=== PATIENT | female | born 1950 | race African-American/Black ===

== ENCOUNTER 2016-05-18 19:20 | Observation (INO) | payer OTHER ==
[~2016-05-18] VITALS: Ht 157.5 cm; Wt 67.6 kg
[~2016-05-18 19:20] MED LIST: ADVAIR HFA120 INHALA IH; ALBUTEROL SULF8.5 GM IH; AMLODIPINE-BEN1 EAC4 PO; ASA FREE ANALG1 EACH PO; ASPIR 8181 M1 PO; ASPIR 8181 MG PO; Aspirin E.C. PO; CHANTIX1 MG PO; CRESTOR40 MG PO; FENOFIBRATE160 M1 PO; GABAPENTIN100 MG PO; GLIMEPIRIDE2 MG PO; HUMALOG100 UNIT/2 SC; IBUPROFEN PO; IBUPROFEN800 MG PO; IMDUR30 MG PO; IMDUR60 MG PO; ISOSORBIDE DINI30 MG PO; ISOSORBIDE MONO30 MG PO; ISOSORBIDE MONO60 MG PO; Imdur PO; LANTUS 3 M100 UNITS1 SC; LEVEMIR100 UNIT/2 SC; LEVOFLOXACIN500 MG PO; LISINOPRIL10 MG PO; LO-DOSE ASPIRIN81 M1 PO; LOFIBRA,TRIGLI160 MG PO; LOVAZA1 GM PO; LOW DOSE ASPIRI81 M2 PO; METFORMIN HCL500 MG PO; METOPROLOL SUC100 MG PO; METOPROLOL SUCC50 MG PO; MOBIC15 MG PO; MOTRIN600 MG PO; MOTRIN800 MG PO; MUCINEX600 MG PO; NAPROSYN500 MG PO; NEURONTIN100 MG PO; NEURONTIN300 MG PO; NITROGLYCERIN0.4 MG SL; NITROSTAT0.4 MG SL; NORCO 5/3251 TABLET PO; NORVASC10 MG PO; NOVOLOG PE100 UNITS/ SC; Nitrostat,NitroQuick SL; Norvasc PO; PERCOCET 5/31 TABLET PO; PLAVIX75 MG PO; PREDNISONE20 MG PO; PRILOSEC PO; PRINIVIL10 MG PO; PRINIVIL20 MG PO; SLEEP AID25 M1 PO; TOPROL XL100 MG PO; TOPROL XL50 MG PO; TRAMADOL HCL50 MG PO; TRIGLIDE160 MG PO; Toprol XL PO; Tricor,Triglide PO; ULTRAM50 MG PO; Ultram PO; ZANTAC150 MG PO; ZESTRIL,PRINIV2.5 MG PO; ZESTRIL,PRINIVI10 M1 PO; ZESTRIL10 MG PO; ZETIA10 MG PO; Zestril,Prinivil PO; [UNRECOGNIZED DRUG - OTHER]; [UNRECOGNIZED DRUG - OTHER] PO
[2016-05-18 20:17] LABS: CARBON DIOXIDE (BICARBONATE) 22.4 MEQ/L (20-31)
[2016-05-18 20:24] LABS: CHLORIDE 100 mEq/L (99-109); POTASSIUM 4.7 mEq/L (3.7-5.4); SODIUM 130 mEq/L (136-147)
[2016-05-18 20:28] LABS: ANION GAP 13 MEQ/L (2-14)
[2016-05-18 20:29] LABS: TOTAL BILIRUBIN 0.3 mg/dL (0.0-1.0)
[2016-05-18 20:30] LABS: ALKALINE PHOSPHATASE 129 IU/L (3-129); GFR ESTIMATE (CALCULATED) 58 mL/min/
[2016-05-18 20:31] LABS: UREA NITROGEN (BUN) 21 mg/dL (9-23)
[2016-05-18 20:34] LABS: LIPASE 34 U/L (1.0-51.0)
[2016-05-18 20:36] LABS: GLUCOSE 587 mg/dL (70-99)
[2016-05-18 20:55] LABS: HEMATOCRIT 41.7 % (36.0-46.0); MCH 23.5 PG (29.0-34.0); MCHC 31.7 G/DL (30.0-36.0); MCV 74.2 FL (83-99); MEAN PLAT.VOLUME 10.8 uM^3 (9.5-12.4); PLATELET COUNT 362 K/uL (156-360); RBC DIS.WIDTH-CV 13.7 % (11.8-14.6); RBC DIS.WIDTH-SD 36.3 % (39-53); RED BLOOD COUNT 5.62 M/uL (3.80-5.20); WHITE BLOOD COUNT 7.4 K/uL (4.1-10.2)
[2016-05-18 23:21] LABS: PROTHROMBIN TIME 10.1 (9.2-11.2); PTT 26.8 (25-32)
[2016-05-19 00:16] LABS: POINT-OF-CARE METER ID UU14100415
[2016-05-19 00:56] LABS: POINT-OF-CARE METER ID UU14100415
[2016-05-19 01:07] LABS: CHLORIDE 110 mEq/L (99-109)
[2016-05-19 01:11] LABS: ANION GAP 13 MEQ/L (2-14)
[2016-05-19 01:13] LABS: GFR ESTIMATE (CALCULATED) > 59 mL/min/
[2016-05-19 01:14] LABS: UREA NITROGEN (BUN) 17 mg/dL (9-23)
[2016-05-19 01:15] LABS: GLUCOSE 138 mg/dL (70-99); POTASSIUM 3.6 mEq/L (3.7-5.4); SODIUM 142 mEq/L (136-147)
[2016-05-19 01:54] LABS: POINT-OF-CARE METER ID UU14100415
[2016-05-19 04:43] LABS: POINT-OF-CARE METER ID UU14100415
[2016-05-19 07:56] LABS: POINT-OF-CARE METER ID UU14100415
[2016-05-19 08:14] LABS: Estimated Average Glucose 303 mg/dL (70-123); HEMOGLOBIN A1c (GLYCOHEMOGLOB) 12.2 % HGB (Below 5.7)
[2016-05-19] MEDS ORDERED: METFORMIN HCL850 MG PO (09:25)
[2016-05-19] MEDS ORDERED: METFORMIN HCL500 MG PO (09:26)
[2016-05-19 12:15] LABS: POINT-OF-CARE METER ID UU14100415
[2016-05-19 13:46] LABS: POINT-OF-CARE METER ID UU13113778
[2016-05-19 15:21] LABS: ADD MIUA? YES; BILIRUBIN NEGATIVE; BLOOD SMALL; COLOR STRAW ((YELLOW)); GLUCOSE (STRIP) >=500; KETONES NEGATIVE; LEUKOCYTES NEGATIVE; NITRITE NEGATIVE; PROTEIN (STRIP) NEGATIVE; SPECIFIC GRAVITY 1.016 (1.000-1.030); UROBILINOGEN 0.2 MG/DL (0.2-1.0)
[2016-05-19 15:23] LABS: BACTERIA NONE SEEN /HPF; EPITHELIAL CELLS RARE /HPF; MUCUS TRACE /LPF; RED BLOOD CELLS 0-5 /HPF (0-5); UCUL ADDED? NO; WHITE BLOOD CELLS 0-5 /HPF (0-5)
[2016-05-19 17:01] LABS: POINT-OF-CARE METER ID UU13113725
[2016-05-19 17:49] VITALS: BP 168/74
[2016-05-19 21:05] LABS: POINT-OF-CARE METER ID UU13113725
[2016-05-19 23:09] VITALS: BP 120/61
[2016-05-20 05:50] LABS: POINT-OF-CARE METER ID UU13113725
[2016-05-20 06:51] VITALS: BP 124/58
[2016-05-20 06:52] LABS: EOSINOPHIL (%) 0.8 % (0-5); EOSINOPHIL COUNT 0.1 K/uL (0-0.3); HEMATOCRIT 38.7 % (36.0-46.0); IMMATURE GRANULOCYTE (%) 0.3 % (0.0-0.7); INSTRUMENT ABS NEUTROPHIL CT 3.1 K/uL; LYMPHOCYTE COUNT 2.6 K/uL (1.0-2.8); MCH 22.8 PG (29.0-34.0); MCHC 30.7 G/DL (30.0-36.0); MCV 74.1 FL (83-99); MEAN PLAT.VOLUME 11.6 uM^3 (9.5-12.4); MONOCYTE (%) 7.4 % (3-12); MONOCYTE COUNT 0.5 K/uL (0-0.8); NEUTROPHIL (%) 49.6 % (45-76); NEUTROPHIL COUNT 3.1 K/uL (1.8-6.4); PLATELET COUNT 340 K/uL (156-360); RBC DIS.WIDTH-SD 37.2 % (39-53); RED BLOOD COUNT 5.22 M/uL (3.80-5.20); WHITE BLOOD COUNT 6.3 K/uL (4.1-10.2)
[2016-05-20 07:02] LABS: ANION GAP 9 MEQ/L (2-14); CHLORIDE 109 MEQ/L (99-109); GFR ESTIMATE (CALCULATED) > 59 mL/min/; SAMPLE HEMOLYSIS CHECK 0; SAMPLE ICTERIC CHECK 0; SAMPLE LIPEMIA CHECK 0; SODIUM 141 MEQ/L (136-147); UREA NITROGEN (BUN) 11 mg/dL (9-23)
[2016-05-20 07:16] LABS: GLUCOSE 230 mg/dL (70-99); POTASSIUM 4.6 MEQ/L (3.7-5.4)
[2016-05-20 11:24] LABS: POINT-OF-CARE METER ID UU13113725
[2016-05-20 11:58] LABS: POINT-OF-CARE METER ID UU13113725
[2016-05-20 12:22] LABS: POINT-OF-CARE METER ID UU13113725
[2016-05-20] MEDS ORDERED: CLOTRIM ANTIFUN15 GM TP (12:38)
== END 2016-05-20 14:33 | disposition home or self-care (01) ==
LOC: EME 19:20 → 5EAST 05-19 02:15 → EDOF 05-19 02:15 → 5EAST 05-19 02:15
PROVIDERS: Emergency Medicine; Family Medicine; Physician Assistant
DX: E11.00 Type 2 diabetes mellitus with hyperosmolarity without nonketotic hyperglycemic-hyperosmolar coma (NKHHC) (principal); E11.65 Type 2 diabetes mellitus with hyperglycemia; E87.1 Hypo-osmolality and hyponatremia; I10 Essential (primary) hypertension; E78.5 Hyperlipidemia, unspecified; I25.10 Atherosclerotic heart disease of native coronary artery without angina pectoris; F17.200 Nicotine dependence, unspecified, uncomplicated; Z79.4 Long term (current) use of insulin; Z95.1 Presence of aortocoronary bypass graft; Z95.5 Presence of coronary angioplasty implant and graft
CPT/HCPCS: 80048; 80053; 81003; 82010; 82803; 82948; 83036; 83690; 85025; 85027; 85610; 85730; 99281; 99285; G0378; J1650; J1815; J3360; J7030

== ENCOUNTER 2016-10-20 17:13 | Emergency (ER) | payer OTHER ==
[~2016-10-20] VITALS: Ht 157.5 cm; Wt 71.5 kg
[2016-10-20] MEDS ORDERED: CHANTIX1 MG PO (17:34)
[2016-10-20 18:11] LABS: CHLORIDE 103 mEq/L (99-109); SODIUM 137 mEq/L (136-147)
[2016-10-20 18:12] LABS: HEMATOCRIT 42.2 % (36.0-46.0); MCH 23.3 PG (29.0-34.0); MCHC 31.8 G/DL (30.0-36.0); MCV 73.4 FL (83-99); MEAN PLAT.VOLUME 11.1 uM^3 (9.5-12.4); PLATELET COUNT 298 K/uL (156-360); RBC DIS.WIDTH-CV 14.6 % (11.8-14.6); RBC DIS.WIDTH-SD 38.1 % (39-53); RED BLOOD COUNT 5.75 M/uL (3.80-5.20); WHITE BLOOD COUNT 7.4 K/uL (4.1-10.2)
[2016-10-20 18:14] LABS: ANION GAP 14 MEQ/L (2-14)
[2016-10-20 18:16] LABS: GFR ESTIMATE (CALCULATED) > 59 mL/min/
[2016-10-20 18:17] LABS: UREA NITROGEN (BUN) 14 mg/dL (9-23)
[2016-10-20 18:19] LABS: CARBON DIOXIDE (BICARBONATE) 25.4 MEQ/L (20-31)
[2016-10-20 18:21] LABS: GLUCOSE 433 mg/dL (70-99)
[2016-10-20 18:26] LABS: ADD MIUA? NO; BILIRUBIN NEGATIVE; BLOOD NEGATIVE; COLOR STRAW ((YELLOW)); GLUCOSE (STRIP) >=500; KETONES NEGATIVE; LEUKOCYTES NEGATIVE; NITRITE NEGATIVE; PROTEIN (STRIP) NEGATIVE; SPECIFIC GRAVITY 1.025 (1.000-1.030); UCUL ADDED? NO; UROBILINOGEN 0.2 MG/DL (0.2-1.0)
[2016-10-20 18:59] LABS: SAMPLE HEMOLYSIS CHECK 0; SAMPLE ICTERIC CHECK 0; SAMPLE LIPEMIA CHECK 0
[2016-10-20 19:36] VITALS: BP 152/77
[2016-10-20 19:38] LABS: POINT-OF-CARE METER ID UU14100415
== END 2016-10-20 19:40 | disposition home or self-care (01) ==
LOC: EME 17:13
PROVIDERS: Emergency Medicine
DX: E11.65 Type 2 diabetes mellitus with hyperglycemia (principal); Z79.4 Long term (current) use of insulin; I11.0 Hypertensive heart disease with heart failure; I50.9 Heart failure, unspecified; I25.10 Atherosclerotic heart disease of native coronary artery without angina pectoris; I25.2 Old myocardial infarction; Z95.1 Presence of aortocoronary bypass graft; Z95.5 Presence of coronary angioplasty implant and graft; E78.5 Hyperlipidemia, unspecified; J45.909 Unspecified asthma, uncomplicated; Z87.891 Personal history of nicotine dependence; Z96.89 Presence of other specified functional implants; Z79.02 Long term (current) use of antithrombotics/antiplatelets; Z79.82 Long term (current) use of aspirin
CPT/HCPCS: 80048; 81003; 82010; 82803; 82948; 85027; 99281; 99285; J7030

== ENCOUNTER → 2016-10-20 | Outpatient (CLI) | payer MEDICARE, OTHER ==
[~2016-10-20] MED LIST changes: +CLOTRIM ANTIFUN15 GM TP; +METFORMIN HCL850 MG PO
== END | disposition home or self-care (01) ==
LOC: CDC 12:19
DX: R94.31 Abnormal electrocardiogram [ECG] [EKG] (principal); I25.2 Old myocardial infarction
CPT/HCPCS: 93000

== ENCOUNTER 2017-02-18 10:03 | Emergency (ER) | payer OTHER ==
[~2017-02-18] VITALS: Ht 157.5 cm; Wt 71.5 kg
[2017-02-18] MEDS ORDERED: VALIUM5 MG PO (13:27)
[2017-02-18] MEDS ORDERED: PERCOCET 5/31 TABLET PO (13:27)
[2017-02-18 14:01] VITALS: BP 114/75
== END 2017-02-18 14:01 | disposition home or self-care (01) ==
LOC: EME 10:03
DX: S43.402A Unspecified sprain of left shoulder joint, initial encounter (principal); X58.XXXA Exposure to other specified factors, initial encounter; G89.29 Other chronic pain; M54.9 Dorsalgia, unspecified; E11.9 Type 2 diabetes mellitus without complications; Z79.84 Long term (current) use of oral hypoglycemic drugs; Z95.1 Presence of aortocoronary bypass graft; Z95.5 Presence of coronary angioplasty implant and graft; Z91.041 Radiographic dye allergy status
CPT/HCPCS: 73030; 73060; 99281; 99283; J1885

== ENCOUNTER 2017-05-20 10:39 | Day surgery (SDC) | payer OTHER ==
[~2017-05-20] VITALS: Ht 157.5 cm; Wt 68.9 kg
[~2017-05-20 10:39] MED LIST changes: +ENDOCET 5-3251 EACH PO; +HUMULIN R500 UNIT/1 SC; +VALIUM5 MG PO
[2017-05-20 11:15] VITALS: BP 127/63
[2017-05-20 16:10] VITALS: BP 128/60
[2017-05-20 16:55] VITALS: BP 114/56
== END 2017-05-20 16:57 | disposition home or self-care (01) ==
LOC: SDC 10:39 → EDSTATUS 12:39 → 2SOUTH 12:41 → EDSTATUS 12:59 → SDC 13:00
PROVIDERS: Orthopaedic Surgery
DX: M25.812 Other specified joint disorders, left shoulder (principal); M75.42 Impingement syndrome of left shoulder; M24.012 Loose body in left shoulder; M19.012 Primary osteoarthritis, left shoulder; I10 Essential (primary) hypertension; E11.9 Type 2 diabetes mellitus without complications; I25.2 Old myocardial infarction; Z79.4 Long term (current) use of insulin; Z79.82 Long term (current) use of aspirin; Z79.02 Long term (current) use of antithrombotics/antiplatelets; Z95.1 Presence of aortocoronary bypass graft; Z95.5 Presence of coronary angioplasty implant and graft
CPT/HCPCS: 82948; J0171; J0690; J1170; J2250; J2710; J2765; J2795; J3010; S0020